=== PATIENT | male | born 1940 | race Two or more races ===

== ENCOUNTER 2022-10-23 09:54 | Emergency (ER) | payer OTHER ==
[~2022-10-23] VITALS: Ht 162.6 cm; Wt 72.6 kg
[2022-10-23] MEDS ORDERED: GABAPENTIN300 M2 PO (10:41)
[2022-10-23] MEDS ORDERED: METFORMIN HCL500 M4 PO (10:41)
[2022-10-23] MEDS ORDERED: LISINOPRIL20 MG PO (10:41)
[2022-10-23] MEDS ORDERED: ATORVASTATIN CA40 MG PO (10:41)
== END 2022-10-23 17:29 | disposition home or self-care (01) ==
LOC: ER 09:54
DX: M79.601 Pain in right arm (principal); R10.9 Unspecified abdominal pain; E78.00 Pure hypercholesterolemia, unspecified; I10 Essential (primary) hypertension; E11.9 Type 2 diabetes mellitus without complications; Z79.84 Long term (current) use of oral hypoglycemic drugs